=== PATIENT | female | born 1970 | race Hispanic/Latino ===

== ENCOUNTER 2022-05-23 01:01 | Day surgery (SDC) | payer OTHER, SELFPAY ==
[2022-05-07 15:04] VITALS: BMI 21.7
--- NOTE | 2022-05-22 14:25 | PM.HPGS ---
History of Present Illness History of Present Illness Consent: Risks, benefits, and alternatives have been discussed and questions answered. Patient agrees to proceed with procedure. Chief complaint: neoplasm screening Narrative: Jacquie Joseph is a 51 year old female Who was referred for colon cancer screening. Review of Systems Review of Systems: All systems reviewed & are unremarkable except as noted in HPI and below PMFSH Family History Family History Other Diabetes mellitus Social History Social History Smoking status: Never smoker Second hand tobacco smoke exposure: No Alcohol intake: never Substance use: never Substance use type: does not use Living arrangements: with family Spiritual care concerns: No Meds Home Medications and Allergies Home Medications Medication Instructions Recorded Confirmed Type ascorbic acid (vitamin C) 500 mg 500 mg PO DAILY 11/01/20 05/07/22 History capsule,extended release cholecalciferol (vitamin D3) 10 10 mcg PO DAILY 11/01/20 05/07/22 History mcg (400 unit) capsule omega-3 fatty acids 1,000 mg 1,000 mg PO DAILY 11/01/20 05/07/22 History capsule (Fish Oil Concentrate) naproxen 220 mg PO DAILY 05/07/22 05/07/22 History Allergies Allergy/AdvReac Type Severity Reaction Status Date / Time No Known Allergies Allergy Verified 05/23/22 09:16 Exam Resp: Auscultation: clear to auscultation bilaterally Cardio: Rate: regular rate Rhythm: regular rhythm GI: GI Palp: Yes Soft to palpation and No Tenderness to palpation present (GI) Assessment and Plan Assessment and plan (1) Colon cancer screening: Code(s): Z12.11 - Encounter for screening for malignant neoplasm of colon Status: Acute Assessment and Plan: Colonoscopy with possible biopsy or polypectomy or cautery or injection of substances.
[2022-05-23 09:22] VITALS: BP 127/54; PULSE 94; RESP 17; TEMP 36.5; O2SAT 100
[2022-05-23] MEDS: LACTATED RINGERS 1,000 ML 150 ML IV CONT (09:31)
--- NOTE | 2022-05-23 09:58 | P.PNAN_ITS ---
Anes - Initial Pre Proc Eval Procedure: Operation Date: 05/23/22 10:30 Proposed Procedures p Screening Colonoscopy - Kendrick Crystal MD Date/Time: 05/23/22 09:58 Surgeon: Kendrick Crystal MD Pre Op Diagnosis: neoplasm screening Patient Data Age: 51 Gender: F Height: 1.57 m Weight: 50.8 kg Last Vital Signs Temp 36.5 C 05/23/22 09:22 Pulse 94 05/23/22 09:22 Resp 17 05/23/22 09:22 BP 127/54 L 05/23/22 09:22 Pulse Ox 100 05/23/22 09:22 O2 Del Method Room Air 05/23/22 09:22 Allergies Allergy/AdvReac Type Severity Reaction Status Date / Time No Known Allergies Allergy Verified 05/23/22 09:16 Home Medications Medication Instructions Recorded Confirmed Type ascorbic acid (vitamin C) 500 mg 500 mg PO DAILY 11/01/20 05/07/22 History capsule,extended release cholecalciferol (vitamin D3) 10 10 mcg PO DAILY 11/01/20 05/07/22 History mcg (400 unit) capsule omega-3 fatty acids 1,000 mg 1,000 mg PO DAILY 11/01/20 05/07/22 History capsule (Fish Oil Concentrate) naproxen 220 mg PO DAILY 05/07/22 05/07/22 History Patient hx anesthesia problems: none Family hx anesthesia problems: none Results Review: All pre-operative results and documents have been reviewed as part of the pre- operative evaluation. PMFSH Family History Family History Other Diabetes mellitus Social History Social History Smoking status: Never smoker Second hand tobacco smoke exposure: No Alcohol intake: never Substance use: never Substance use type: does not use Living arrangements: with family Spiritual care concerns: No Anes - Eval Final PreProcedure Day of Procedure 05/23/22 09:58 Patient weight: normal Heart: regular rate and rhythm Lungs: clear to auscultation Airway: Mallampati scale class II Neurological: alert and oriented Last oral intake: >/= 8 hours ASA classification: I Emergent: no Anesthetic plan: proceed Anesthesia type and monitoring: general GIVS and standard monitoring Results Review: All pre-operative results and documents have been reviewed as part of the pre- operative evaluation. Informed Consent: The patient's anesthetic plan and its attendant risks and benefits were discussed with the patient/family/POA. Questions were solicited and answers provided to the satisfaction of the patient/family/POA.
[2022-05-23 10:39] VITALS: BP 109/62; PULSE 82; RESP 22; O2SAT 100
[2022-05-23 10:49] VITALS: BP 115/74; PULSE 73; RESP 16; O2SAT 100
[2022-05-23 10:59] VITALS: BP 112/73; PULSE 67; RESP 17; O2SAT 100
== END 2022-05-23 11:10 | disposition home or self-care (01) ==
PROVIDERS: PCP Internal Medicine; Visit Provider Internal Medicine Gastroenterology
PROC: 0DJD8ZZ Inspection of Lower Intestinal Tract, Via Natural or Artificial Opening Endoscopic (ICD-10-PCS; CPT 45378; principal; 2022-05-23 10:30)
DX: Z12.11 Encounter for screening for malignant neoplasm of colon (principal)
CPT/HCPCS: 45378; J2704; J7120

== ENCOUNTER 2025-02-10 08:43 | Outpatient (CLI) | payer OTHER, SELFPAY ==
--- OUTSIDE RECORDS SUMMARY | 2025-02-10 08:56 | XMS_ITS | Data Portability ---
Author Organization [facility], Main Office Address [address] [place] [address] Care Team Providers Care Stiff Neck Loader Name Role Phone LAUREN JUAN Primary Care Provider LAUREN JUAN Referring Provider [phone] Assessment Encounter Date Assessment Date Assessment LastModified by Organization Details LastModified Time 07/10/2023 07/10/2023 52-year-old patient presents today with left shoulder pain that started a few months ago. She denies any injury. She states she experiences pain with lifting overhead and reaching forward. She has not tried any treatments at this time. She is right-handed. Review of systems per patient questionnaire Imaging: X-rays reviewed show no acute bony abnormality, no fracture. Preserved joint space throughout. Physical exam: No tenderness to palpation around the shoulder. Range of motion 140/30/lower lumbar. She has 5/5 strength with rotator cuff testing. She did have soreness with resisted elevation. Negative Randy sign. Negative Neer, Lambert. Negative Speed, Yergason's. Neurovascular intact throughout. We will start with a course of physical therapy to help stretch and strengthen her shoulder. We recommend that she start taking anti-inflammator ies consistently over the next few weeks. We will see her back in 4-6 weeks after therapy to check her progress. She is in agreement with this plan. [email or web address] Not available 07/10/2023 10:49:52 Plan of Treatment Reminders Order Date Submit Date Provider Last Modified By Organization Details Last Modified Time Details Appointments None recorded. Lab vitamin D, 25-hydroxy , total, serum 2023 024 [facility], [address] [place], [address], 09:56:43 CMP, serum or plasma 2023 024 [facility], [address] [place], [address], 4 09:56:42 CBC w/ auto diff 2023 024 [email or web address] [facility], [address] [place], [address], 4 09:56:43 lipid panel, serum 2023 024 [email or web address] [facility], [address] [place], [address], 4 09:56:43 TSH, serum or plasma 2023 024 [email or web address] [facility], [address] [place], [address], 4 09:56:43 T4, free, serum 2023 024 [facility], [address] [place], [address], 4 09:56:43 vitamin D, 25-hydroxy , total, serum 2022 023 [email or web address] [facility], [address] [place], [address], 3 10:13:16 CMP, serum or plasma [id number] [place] [address], [address] [place], [address], 3 10:13:15 lipid panel, serum 2022 023 [email or web address] [facility], [address] [place], [address], 3 10:13:15 CBC w/ auto diff 2022 023 [email or web address] [facility], [address] [place], [address], 10:13:15 TSH, serum or plasma 2022 023 [id number] [facility], [address] [place], [address], 10:13:15 T4, free, serum 2022 023 [email or web address] [facility], [address] [place], [address], 10:13:15 Referral physical therapist referral - Please contact pt to schedule apt for L shoulder. Thanks 2022 023 [facility] [place], [address] [place], [address], 13:57:57 Procedures None recorded. Surgeries None recorded. Imaging None recorded. Medication Orders None recorded. Patient TargetsNo targets recorded. Patient Instructions Encounter Date Encounter Id Patient Instructions Last Modified By Organization Details Last Modified Time 03/27/2023 [id number] risk assessment* [email or web address] Not availabl e 03/27/2023 10:45:28 INFLUENZA VACCIN E Recommended today, but patient declined TD/TDAP Recommended today, patient declined Ordered P atient will get at local pharmacy/health department PNEUMONIA VACCINE Ordered Recommende d today, patient declined Patient will get at local pharmacy/health department Recomme nded at age 66 SHINGLES Ordered Recommende d today, patient declined Patient will get at local pharmacy/health department MAMMOGRAM: Last Mammogram _ No screening necessary patient is up to date DEXA SCAN No screening necessary patient is up to date CERVICAL SCREENING/PELVIC EXAMINATION Recommended today, but patient declined Ordered N o screening necessary patient is up to date COLORECTAL SCREENING: Last Colonoscopy No screening necessary patient is up to date DEPRESSION SCREENING Negative BMI Overweight Appropr iate NUTRITION Heart Healthy Diet PHYSICAL ACTIVITY Need more exercise/physical activity VISION Ordered Recommende d today Recommended today, but you have declined ALCOHOL USE No alcohol use TOBACCO USE non smoker LUNG CANCER SCREENING Non Smoker-not indicated SEXUALLY ACTIVE HEPATITIS C SCREENING Not indicated GLUCOSE SCREENING LIPID SCREENING [email or web address] Not available 03/27/2023 10:36:58 Wellness evaluation risk assessment stable. 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 Will check blood work consisting of CBC, CMP, thyroid, lipid and vitamin-D level. Continue on current Rx follow-up in one year. [email or web address] Not available 03/27/2023 10:45:09 04/14/2024 [id number] Wellness evaluation risk assessment stable. History of carcinoid of the appendix clinically stable. No interval complaints of any new problems. Will check blood work in the form of CBC, CMP, lipid, thyroid and vitamin-D level. Will continue on current Rx recheck back in one year. Next Appointment: 1 Year Approximate Date: 04/14/2025 Portions of the record may have been created with voice recognition software. Occasional wrong-word or [id number] substitutions may have occurred due to the inherent limitations of voice recognition software. Read the chart carefully and recognize, using context, where substitutions have occurred. [email or web address] Not available 04/14/2024 16:10:12 Reason for Referral Physical Therapist Referral for Pain of left shoulder joint L shoulder Please contact pt to schedule apt for L shoulder. Thanks Referring Physician: Ewa Montero, Orthopedic Surgery, Encounter Date: 07/10/2023 Results Created Date Observation Date Name Description Value Unit Range Abnormal Flag Note LastModifiedBy Organization Detail LastModifiedTime 04/08/20 21 04/08/2021 vitam in D3, 25-hy droxy , serum [id number] 47.0 NG/mL 30-100 Vitam in D Statu s: Defic ient: <20 ng/mL Insuf ficie nt: 20-29 ng/mL Suffi cient : 30-10 0 ng/mL Not Available [facility] (Lab) [address] [place], [address], 04/08/2021 20:53:48 04/08/20 21 04/08/2021 vitam in B12, serum vb12 539 pg/mL 239-93 1 Not Available [facility] (Lab) [address] [place], [address], 04/08/2021 20:24:46 04/08/20 21 04/08/2021 TSH, serum or plasm a thyroid-stim ulating hormone 0.793 uIU/m L 0.465- 4.680 Not Available [facility] (Lab) [address] [place], [address], 04/08/2021 20:13:55 04/08/20 21 04/08/2021 T4, free, serum free T4 1.32 NG/dL 0.78-2 .19 Not Available [facility] (Lab) [address] [place], [address], 04/08/2021 19:55:10 04/08/20 21 04/08/2021 lipid panel , serum cholesterol 185 mg/dL 140-19 9 [facility] OSMANY NSUS RECOM MENDA TION FOR CORINE STERO L: ADULT CHILD LOW RISK: <200 <170 BORDE RLINE : <200- 239 ----- HIGH RISK: >240 >200 Not Available [facility] (Lab) [address] [place], [address], 04/08/2021 19:53:27 04/08/2004/08/2021 lipid panel , serum triglyceride s 97 mg/dL 0-150 NIH OSMANY NSUS REPOR T RECOM MENDA TION FOR TRIGL YCERI FROYLAN: ADULT CHILD LOW RISK: <150 ----- BODER LINE: 150-1 99 ----- HIGH RISK: >200 ----- Not Available [facility] (Lab) [address] [place], [address], 04/08/2021 19:53:27 04/08/2004/08/2021 lipid panel , serum HDL cholesterol 53 mg/dL 40- Not Available [facility] (Lab) [address] [place], [address], 04/08/2021 19:53:27 04/08/20 21 04/08/2021 lipid panel , serum LDL cholesterol, calculated 113 mg/dL 0-130 NIH OSMANY NSUS REPOR T RECOM MENDA TIONS FOR LDL: ADULT CHILD LOW RISK <130 <110 (OPTI MAL LDL) <100 ----- BORDE RLINE : 130-1 59 ----- HIGH RISK: >160 >130 A TRIGL YCERI DE RESUL T >400 INVAL IDATE S THE CALCU LATIO N FOR LDL FRACT IONAT ION - THE LDL RESUL T WILL NOT BE REPOR DAVONTE. Not Available [facility] (Lab) [address] [place], [address], 04/08/2021 19:53:27 04/08/20 21 04/08/2021 CMP, serum or plasm a agap 11.4 mmol/ L 14-[address] [facility] (Lab) [address] [place], [address], 04/08/2021 19:53:22 04/08/20 21 04/08/2021 CMP, serum or plasm a sodium 139 mmol/ L 137-14 5 Not Available [facility] (Lab) [address] [place], [address], 04/08/2021 19:53:22 04/08/20 21 04/08/2021 CMP, serum or plasm a potassium 4.4 mmol/ L 3.5-5. 1 Not Available [facility] (Lab) [address] [place], [address], 04/08/2021 19:53:22 04/08/20 21 04/08/2021 CMP, serum or plasm a chloride 104 mmol/ L 98-107 Not Available [facility] (Lab) [address] [place], [address], 04/08/2021 19:53:22 04/08/20 21 04/08/2021 CMP, serum or plasm a carbon dioxide 28 mmol/ L 22-30 Not Available [facility] (Lab) [address] [place], [address], 04/08/2021 19:53:22 04/08/2004/08/2021 CMP, serum or plasm a glucose 78 mg/dL 70-99 Not Available [facility] (Lab) [address] [place], [address], 04/08/2021 19:53:22 04/08/20 21 04/08/2021 CMP, serum or plasm a BUN 14 mg/dL 8-19 Not Available [facility] (Lab) [address] [place], [address], 04/08/2021 19:53:22 04/08/20 21 04/08/2021 CMP, serum or plasm a creatinine 0.65 mg/dL 0.66-1 .25 low Not Available [facility] (Lab) [address] [place], [address], 04/08/2021 19:53:22 04/08/2004/08/2021 CMP, serum or plasm a GFR >60 Refer ence Range : [place] ge GFR Healt hy Adult : >60 mL/mi n/1.7 3 m2 Chron ic Kidne y Disea se: 15-60 mL/mi n/1.7 3 m2 Kidne y Failu re: <15/m L/min /1.73 m2 www.n iddk. nih.g ov MDRD study equat ion hasn' t been valid ated in child wanda <18 yrs of age, pregn ant women , the elder ly >85 yrs of age, or in some racia l or ethni c subgr oups, suc as Hispa nics. Outsi de the valid ated martin eters , estim ated GFR is less accur ate requi ring clini kate judgm ent on a case by case basis . Clini kate inter preta tion for other races and ages must be made by the clini todd . Futhe rmore , any of th e limit ation s with the use of serum creat inine relat ed to nutri alber l statu s o r medic ation usage hasn' t accou nted for the MDRD Study equat ion. For perso ns < 18 yrs of age, a pedia tric GFR calcu lator can be locat ed on the [facility] websi te: https ://michelle w.devendra radha.o rg/pr ofess ional s/kdo qi/gf r_cal culat or Not Available [facility] (Lab) [address] [place], [address], 04/08/2021 19:53:22 04/08/20 21 04/08/2021 CMP, serum or plasm a alkaline phosphatase 60 U/L 38-126 Not Available [facility] (Lab) [address] [place], [address], 04/08/2021 19:53:22 04/08/2004/08/2021 CMP, serum or plasm a alanine aminotransfe rase 30 U/L 0-35 Not Available [facility] (Lab) [address] [place], [address], 04/08/2021 19:53:22 04/08/2004/08/2021 CMP, serum or plasm a aspartate aminotransfe rase 35 U/L 15-37 Not Available [facility] (Lab) [address] [place], [address], 04/08/2021 19:53:22 04/08/20 21 04/08/2021 CMP, serum or plasm a bilirubin, total 0.50 mg/dL 0.20-1 .30 Not Available [facility] (Lab) [address] [place], [address], 04/08/2021 19:53:22 04/08/20 21 04/08/2021 CMP, serum or plasm a calcium 9.5 mg/dL 8.4-10 .2 Not Available [facility] (Lab) [address] [place], [address], 04/08/2021 19:53:22 04/08/2004/08/2021 CMP, serum or plasm a total protein 7.5 g/dL 6.3-8. 2 Not Available [facility] (Lab) [address] [place], [address], 04/08/2021 19:53:22 04/08/20 21 04/08/2021 CMP, serum or plasm a albumin 4.6 g/dL 3.4-5. 0 Not Available [facility] (Lab) [address] [place], [address], 04/08/2021 19:53:22 04/08/20 21 04/08/2021 CMP, serum or plasm a globulin 2.9 g/dL 2.6-4. 2 Not Available [facility] (Lab) [address] [place], [address], 04/08/2021 19:53:22 04/08/20 21 04/08/2021 CMP, serum or plasm a A/G ratio 1.6 ratio 1.0-2. 0 Not Available [facility] (Lab) [address] [place], [address], 04/08/2021 19:53:22 04/08/2004/08/2021 CBC w/ auto diff hematocrit 38.4 % 35.7-4 5.7 Not Available [facility] (Lab) [address] [place], [address], 04/08/2021 14:00:13 04/08/2004/08/2021 CBC w/ auto diff white blood cells 4.3 x10'3 /uL 4.2-10 .8 Not Available [facility] (Lab) [address] [place], [address], 04/08/2021 14:00:13 04/08/20 21 04/08/2021 CBC w/ auto diff red blood cells 4.20 x10'6 /uL 3.80-5 .20 Not Available [facility] (Lab) [address] [place], [address], 04/08/2021 14:00:13 04/08/20 21 04/08/2021 CBC w/ auto diff hemoglobin 12.6 g/dL 12.0-[address] [facility] (Lab) [address] [place], [address], 04/08/2021 14:00:13 04/08/2004/08/2021 CBC w/ auto diff mean red cell volume 91.4 fL 82.0-9 9.0 Not Available [facility] (Lab) [address] [place], [address], 04/08/2021 14:00:13 04/08/2004/08/2021 CBC w/ auto diff mean red cell hemoglobin 30.0 pg 27.0-3 3.0 Not Available [facility] (Lab) [address] [place], [address], 04/08/2021 14:00:13 04/08/2004/08/2021 CBC w/ auto diff mean platelet volume 10.3 fL 9.0-12 .4 Not Available [facility] (Lab) [address] [place], [address], 04/08/2021 14:00:13 04/08/2004/08/2021 CBC w/ auto diff mean RBC HGB concentratio n 32.8 g/dL 31.0-3 6.0 Not Available [facility] (Lab) [address] [place], [address], 04/08/2021 14:00:13 04/08/20 21 04/08/2021 CBC w/ auto diff red cell distribution width 13.4 % 11.8-[address] [facility] (Lab) [address] [place], [address], 04/08/2021 14:00:13 04/08/2004/08/2021 CBC w/ auto diff platelets 256 x10'3 /uL 150-40 0 Not Available [facility] (Lab) [address] [place], [address], 04/08/2021 14:00:13 04/08/2004/08/2021 CBC w/ auto diff neutrophils 63.0 % 39.0-7 2.0 Not Available [facility] (Lab) [address] [place], [address], 04/08/2021 14:00:13 04/08/2004/08/2021 CBC w/ auto diff lymphocytes 26.5 % 16.0-[address] [facility] (Lab) [address] [place], [address], 04/08/2021 14:00:13 04/08/2004/08/2021 CBC w/ auto diff monocytes 6.3 % 5.0-12 .0 Not Available [facility] (Lab) [address] [place], [address], 04/08/2021 14:00:13 04/08/2004/08/2021 CBC w/ auto diff eosinophils 3.3 % 1.0-7. 0 Not Available [facility] (Lab) [address] [place], [address], 04/08/2021 14:00:13 04/08/2004/08/2021 CBC w/ auto diff basophils 0.7 % 0.0-2. 0 Not Available [facility] (Lab) [address] [place], [address], 04/08/2021 14:00:13 04/08/2004/08/2021 CBC w/ auto diff immature granulocytes 0.2 % 0.00-[address] [facility] (Lab) [address] [place], [address], 04/08/2021 14:00:13 04/08/20 21 04/08/2021 CBC w/ auto diff neutrophils, absolute count 2.71 x10'3 /uL 1.5-8. [address] [facility] (Lab) [address] [place], [address], 04/08/2021 14:00:13 04/08/2004/08/2021 CBC w/ auto diff lymphocytes, absolute count 1.14 x10'3 /uL 1.07-3 .43 Not Available [facility] (Lab) [address] [place], [address], 04/08/2021 14:00:13 04/08/2004/08/2021 CBC w/ auto diff monocytes, absolute count 0.27 x10'3 /uL 0.29-0 [address] [facility] (Lab) [address] [place], [address], 04/08/2021 14:00:13 04/08/2004/08/2021 CBC w/ auto diff eosinophils, absolute count 0.14 x10'3 /uL 0.02-[address] [facility] (Lab) [address] [place], [address], 04/08/2021 14:00:13 04/08/2004/08/2021 CBC w/ auto diff basophils, absolute count 0.03 x10'3 /uL 0.01-0 .08 Not Available [facility] (Lab) [address] [place], [address], 04/08/2021 14:00:13 04/08/2004/08/2021 CBC w/ auto diff immature granulocytes ,absolute 0.01 x10'3 /uL 0.00-0 .05 Not Available [facility] (Lab) [address] [place], [address], 04/08/2021 14:00:13 04/08/20 21 04/08/2021 CBC w/ auto diff nucleated red blood cells 0.0 % -0 Not Available [facility] (Lab) [address] [place], [address], 04/08/2021 14:00:13 04/08/20 21 04/08/2021 CBC w/ auto diff NRBC# 0.00 x10'3 /uL Not Available [facility] (Lab) [address] [place], [address], 04/08/2021 14:00:13 04/28/20 22 04/28/2022 CBC/C OMPLE TE BLD COUNT W/DIF F mean red cell volume 92.5 fL 82.0-9 9.0 Not Available [facility] (Lab) [address] [place], [address], 04/28/2022 13:02:35 04/28/20 22 04/28/2022 CBC/C OMPLE TE BLD COUNT W/DIF F white blood cells 4.8 x10'3 /uL 4.2-10 .8 Not Available [facility] (Lab) [address] [place], [address], 04/28/2022 13:02:35 04/28/20 22 04/28/2022 CBC/C OMPLE TE BLD COUNT W/DIF F red blood cells 4.27 x10'6 /uL 3.80-5 .20 Not Available [facility] (Lab) [address] [place], [address], 04/28/2022 13:02:35 04/28/20 22 04/28/2022 CBC/C OMPLE TE BLD COUNT W/DIF F hemoglobin 12.9 g/dL 12.0-1 5.6 Not Available [facility] (Lab) [address] [place], [address], 04/28/2022 13:02:35 04/28/20 22 04/28/2022 CBC/C OMPLE TE BLD COUNT W/DIF F hematocrit 39.5 % 35.7-4 5.7 Not Available [facility] (Lab) [address] [place], [address], 04/28/2022 13:02:35 04/28/20 22 04/28/2022 CBC/C OMPLE TE BLD COUNT W/DIF F mean red cell hemoglobin 30.2 pg 27.0-3 3.0 Not Available [facility] (Lab) [address] [place], [address], 04/28/2022 13:02:35 04/28/20 22 04/28/2022 CBC/C OMPLE TE BLD COUNT W/DIF F mean RBC HGB concentratio n 32.7 g/dL 31.0-3 6.0 Not Available [facility] (Lab) [address] [place], [address], 04/28/2022 13:02:35 04/28/20 22 04/28/2022 CBC/C OMPLE TE BLD COUNT W/DIF F red cell distribution width 13.2 % 11.8-1 5.5 Not Available [facility] (Lab) [address] [place], [address], 04/28/2022 13:02:35 04/28/20 22 04/28/2022 CBC/C OMPLE TE BLD COUNT W/DIF F platelets 270 x10'3 /uL 150-40 0 Not Available [facility] (Lab) [address] [place], [address], 04/28/2022 13:02:35 04/28/20 22 04/28/2022 CBC/C OMPLE TE BLD COUNT W/DIF F mean platelet volume 10.6 fL 9.0-[address] [facility] (Lab) [address] [place], [address], 04/28/2022 13:02:35 04/28/20 22 04/28/2022 CBC/C OMPLE TE BLD COUNT W/DIF F neutrophils 58.0 % 39.0-[address] [facility] (Lab) [address] [place], [address], 04/28/2022 13:02:35 04/28/20 22 04/28/2022 CBC/C OMPLE TE BLD COUNT W/DIF F lymphocytes 30.5 % 16.0-4 7.0 Not Available [facility] (Lab) [address] [place], [address], 04/28/2022 13:02:35 04/28/20 22 04/28/2022 CBC/C OMPLE TE BLD COUNT W/DIF F monocytes 6.4 % 5.0-[address] [facility] (Lab) [address] [place], [address], 04/28/2022 13:02:35 04/28/20 22 04/28/2022 CBC/C OMPLE TE BLD COUNT W/DIF F eosinophils 4.1 % 1.0-7. [address] [facility] (Lab) [address] [place], [address], 04/28/2022 13:02:35 04/28/20 22 04/28/2022 CBC/C OMPLE TE BLD COUNT W/DIF F basophils 0.8 % 0.0-2. 0 Not Available [facility] (Lab) [address] [place], [address], 04/28/2022 13:02:35 04/28/20 22 04/28/2022 CBC/C OMPLE TE BLD COUNT W/DIF F immature granulocytes 0.2 % 0.00-0 .50 Not Available [facility] (Lab) [address] [place], [address], 04/28/2022 13:02:35 04/28/20 22 04/28/2022 CBC/C OMPLE TE BLD COUNT W/DIF F neutrophils, absolute count 2.79 x10'3 /uL 1.5-8. 0 Not Available [facility] (Lab) [address] [place], [address], 04/28/2022 13:02:35 04/28/20 22 04/28/2022 CBC/C OMPLE TE BLD COUNT W/DIF F lymphocytes, absolute count 1.47 x10'3 /uL 1.07-3 .43 Not Available [facility] (Lab) [address] [place], [address], 04/28/2022 13:02:35 04/28/20 22 04/28/2022 CBC/C OMPLE TE BLD COUNT W/DIF F monocytes, absolute count 0.31 x10'3 /uL 0.29-0 .99 Not Available [facility] (Lab) [address] [place], [address], 04/28/2022 13:02:35 04/28/20 22 04/28/2022 CBC/C OMPLE TE BLD COUNT W/DIF F eosinophils, absolute count 0.20 x10'3 /uL 0.02-0 .53 Not Available [facility] (Lab) [address] [place], [address], 04/28/2022 13:02:35 04/28/20 22 04/28/2022 CBC/C OMPLE TE BLD COUNT W/DIF F basophils, absolute count 0.04 x10'3 /uL 0.01-0 .08 Not Available [facility] (Lab) [address] [place], [address], 04/28/2022 13:02:35 04/28/20 22 04/28/2022 CBC/C OMPLE TE BLD COUNT W/DIF F immature granulocytes ,absolute 0.01 x10'3 /uL 0.00-0 .05 Not Available [facility] (Lab) [address] [place], [address], 04/28/2022 13:02:35 04/28/20 22 04/28/2022 CBC/C OMPLE TE BLD COUNT W/DIF F nucleated red blood cells 0.0 % -0 Not Available [facility] (Lab) [address] [place], [address], 04/28/2022 13:02:35 04/28/20 22 04/28/2022 CBC/C OMPLE TE BLD COUNT W/DIF F NRBC# 0.00 x10'3 /uL Not Available [facility] (Lab) [address] [place], [address], 04/28/2022 13:02:35 04/28/20 22 04/28/2022 TSH thyroid-stim ulating hormone 1.350 uIU/m L 0.465- 4.680 Not Available [facility] (Lab) [address] [place], [address], 04/28/2022 15:07:40 04/28/20 22 04/28/2022 T4 FREE free T4 1.40 NG/dL 0.78-2 .19 Not Available [facility] (Lab) [address] [place], [address], 04/28/2022 14:52:58 04/28/20 22 04/28/2022 LIPID PANEL cholesterol 201 mg/dL 140-19 9 high NIH OSMANY NSUS RECOM MENDA TION FOR CORINE STERO L: ADULT CHILD LOW RISK: <200 <170 BORDE RLINE : <200- 239 ----- HIGH RISK: >240 >200 Not Available [facility] (Lab) [address] [place], [address], 04/28/2022 14:31:43 04/28/20 22 04/28/2022 LIPID PANEL triglyceride s 102 mg/dL 0-150 NIH OSMANY NSUS REPOR T RECOM MENDA TION FOR TRIGL YCERI FROYLAN: ADULT CHILD LOW RISK: <150 ----- BODER LINE: 150-1 99 ----- HIGH RISK: >200 ----- Not Available [facility] (Lab) [address] [place], [address], 04/28/2022 14:31:43 04/28/20 22 04/28/2022 LIPID PANEL HDL cholesterol 52 mg/dL 40- Not Available [facility] (Lab) [address] [place], [address], 04/28/2022 14:31:43 04/28/20 22 04/28/2022 LIPID PANEL LDL cholesterol, calculated 129 mg/dL 0-130 NIH OSMANY NSUS REPOR T RECOM MENDA TIONS FOR LDL: ADULT CHILD LOW RISK <130 <110 (OPTI MAL LDL) <100 ----- BORDE RLINE : 130-1 59 ----- HIGH RISK: >160 >130 A TRIGL YCERI DE RESUL T >400 INVAL IDATE S THE CALCU LATIO N FOR LDL FRACT IONAT ION - THE LDL RESUL T WILL NOT BE REPOR DAVONTE. Not Available [facility] (Lab) [address] [place], [address], 04/28/2022 14:31:43 04/28/20 22 04/28/2022 COMPR EHENS BRIANDA METAB OLIC PANEL anion gap 9.5 mmol/ L 14- low Not Available [facility] (Lab) [address] [place], [address], 04/28/2022 14:31:40 04/28/20 22 04/28/2022 COMPR EHENS BRIANDA METAB OLIC PANEL sodium 139 mmol/ L 137-[address] [facility] (Lab) [address] [place], [address], 04/28/2022 14:31:40 04/28/20 22 04/28/2022 COMPR EHENS BRIANDA METAB OLIC PANEL potassium 4.5 mmol/ L 3.5-5. [address] [facility] (Lab) [address] [place], [address], 04/28/2022 14:31:40 04/28/20 22 04/28/2022 COMPR EHENS BRIANDA METAB OLIC PANEL chloride 105 mmol/ L 98-107 Not Available [facility] (Lab) [address] [place], [address], 04/28/2022 14:31:40 04/28/20 22 04/28/2022 COMPR EHENS BRIANDA METAB OLIC PANEL carbon dioxide 29 mmol/ L 22-[address] [facility] (Lab) [address] [place], [address], 04/28/2022 14:31:40 04/28/20 22 04/28/2022 COMPR EHENS BRIANDA METAB OLIC PANEL glucose 89 mg/dL 70-99 Not Available [facility] (Lab) [address] [place], [address], 04/28/2022 14:31:40 04/28/20 22 04/28/2022 COMPR EHENS BRIANDA METAB OLIC PANEL BUN 21 mg/dL 8-19 high Not Available [facility] (Lab) [address] [place], [address], 04/28/2022 14:31:40 04/28/20 22 04/28/2022 COMPR EHENS BRIANDA METAB OLIC PANEL creatinine 0.71 mg/dL 0.66-1 .25 Not Available [facility] (Lab) [address] [place], [address], 04/28/2022 14:31:40 04/28/20 22 04/28/2022 COMPR EHENS BRIANDA METAB OLIC PANEL GFR >60 Refer ence Range : [place] [facility] GFR Healt hy Adult : >60 mL/mi n/1.7 3 m2 Chron ic Kidne y Disea se: 15-60 mL/mi n/1.7 3 m2 Kidne y Failu re: <15/m L/min /1.73 m2 [email or web address] The MDRD study equat ion has not been valid ated in child wanda <18 years of age; pregn ant women ; the elder ly >85 years of age; or in some racia l or ethni c subgr oups, such as Hispa nics. Outsi de the valid ated martin eters , estim ated GFR is less accur ate, requi ring clini kate judgm ent on a case- by-ca se basis . Clini kate inter preta tion for other races and ages must be made by the clini todd. The MDRD study equat ion has not been valid ated for the evalu ation of serum creat inine relat ed to nutri alber l statu s or medic ation usage . For perso ns <18 years of age, a pedia tric GFR calcu lator is avail able on the [facility] websi te: [email or web address] :[email or web address] irma/pr ofess ional s/kdo qi/gf r_cal culat or Not Available [facility] (Lab) [address] [place], [address], 04/28/2022 14:31:40 04/28/20 22 04/28/2022 COMPR EHENS BRIANDA METAB OLIC PANEL alkaline phosphatase 67 U/L 38-126 Not Available [facility] (Lab) [address] [place], [address], 04/28/2022 14:31:40 04/28/20 22 04/28/2022 COMPR EHENS BRIANDA METAB OLIC PANEL alanine aminotransfe rase 22 U/L 0-35 Not Available [facility] (Lab) [address] [facility] [place], [address], 04/28/2022 14:31:40 04/28/20 22 04/28/2022 COMPR EHENS BRIANDA METAB OLIC PANEL aspartate aminotransfe rase 29 U/L 15-37 Not Available [facility] (Lab) [address] [place], [address], 04/28/2022 14:31:40 04/28/20 22 04/28/2022 COMPR EHENS BRIANDA METAB OLIC PANEL bilirubin, total 0.30 mg/dL 0.20-1 .30 Not Available [facility] (Lab) [address] [place], [address], 04/28/2022 14:31:40 04/28/20 22 04/28/2022 COMPR EHENS BRIANDA METAB OLIC PANEL calcium 9.3 mg/dL 8.4-10 .2 Not Available [facility] (Lab) [address] [place], [address], 04/28/2022 14:31:40 04/28/20 22 04/28/2022 COMPR EHENS BRIANDA METAB OLIC PANEL total protein 7.4 g/dL 6.3-8. 2 Not Available [facility] (Lab) [address] [place], [address], 04/28/2022 14:31:40 04/28/20 22 04/28/2022 COMPR EHENS BRIANDA METAB OLIC PANEL albumin 4.3 g/dL 3.4-5. 0 Not Available [facility] (Lab) [address] [place], [address], 04/28/2022 14:31:40 04/28/20 22 04/28/2022 COMPR EHENS BRIANDA METAB OLIC PANEL globulin 3.1 g/dL 2.6-4. 2 Not Available [facility] (Lab) [address] [place], [address], 04/28/2022 14:31:40 04/28/20 22 04/28/2022 COMPR EHENS BRIANDA METAB OLIC PANEL A/G ratio 1.4 ratio 1.0-2. 0 Not Available [facility] (Lab) [address] [place], [address], 04/28/2022 14:31:40 05/22/20 23 05/22/2023 CBC/C OMPLE TE BLD COUNT W/DIF F white blood cells 5.8 x10'3 /uL 4.2-10 .8 Not Available [facility] (Lab) [address] [place], [address], 05/22/2023 12:45:41 05/22/20 23 05/22/2023 CBC/C OMPLE TE BLD COUNT W/DIF F red blood cells 4.34 x10'6 /uL 3.80-5 .20 Not Available [facility] (Lab) [address] [place], [address], 05/22/2023 12:45:41 05/22/20 23 05/22/2023 CBC/C OMPLE TE BLD COUNT W/DIF F hemoglobin 13.3 g/dL 12.0-1 5.6 Not Available [facility] (Lab) [address] [place], [address], 05/22/2023 12:45:41 05/22/20 23 05/22/2023 CBC/C OMPLE TE BLD COUNT W/DIF F hematocrit 39.6 % 35.7-4 5.7 Not Available [facility] (Lab) [address] [place], [address], 05/22/2023 12:45:41 05/22/20 23 05/22/2023 CBC/C OMPLE TE BLD COUNT W/DIF F mean red cell volume 91.2 fL 82.0-9 9.0 Not Available [facility] (Lab) [address] [place], [address], 05/22/2023 12:45:41 05/22/20 23 05/22/2023 CBC/C OMPLE TE BLD COUNT W/DIF F mean red cell hemoglobin 30.6 pg 27.0-3 3.0 Not Available [facility] (Lab) [address] [place], [address], 05/22/2023 12:45:41 05/22/20 23 05/22/2023 CBC/C OMPLE TE BLD COUNT W/DIF F mean RBC HGB concentratio n 33.6 g/dL 31.0-3 6.0 Not Available [facility] (Lab) [address] [place], [address], 05/22/2023 12:45:41 05/22/20 23 05/22/2023 CBC/C OMPLE TE BLD COUNT W/DIF F red cell distribution width 12.6 % 11.8-1 5.5 Not Available [facility] (Lab) [address] [place], [address], 05/22/2023 12:45:41 05/22/20 23 05/22/2023 CBC/C OMPLE TE BLD COUNT W/DIF F platelets 271 x10'3 /uL 150-40 0 Not Available [facility] (Lab) [address] [place], [address], 05/22/2023 12:45:41 05/22/20 23 05/22/2023 CBC/C OMPLE TE BLD COUNT W/DIF F mean platelet volume 10.2 fL 9.0-12 .4 Not Available [facility] (Lab) [address] [place], [address], 05/22/2023 12:45:41 05/22/20 23 05/22/2023 CBC/C OMPLE TE BLD COUNT W/DIF F neutrophils 60.7 % 39.0-7 2.0 Not Available [facility] (Lab) [address] [place], [address], 05/22/2023 12:45:41 05/22/20 23 05/22/2023 CBC/C OMPLE TE BLD COUNT W/DIF F lymphocytes 29.5 % 16.0-4 7.0 Not Available [facility] (Lab) [address] [place], [address], 05/22/2023 12:45:41 05/22/20 23 05/22/2023 CBC/C OMPLE TE BLD COUNT W/DIF F monocytes 5.3 % 5.0-12 .0 Not Available [facility] (Lab) [address] [place], [address], 05/22/2023 12:45:41 05/22/20 23 05/22/2023 CBC/C OMPLE TE BLD COUNT W/DIF F eosinophils 3.6 % 1.0-7. 0 Not Available [facility] (Lab) [address] [place], [address], 05/22/2023 12:45:41 05/22/20 23 05/22/2023 CBC/C OMPLE TE BLD COUNT W/DIF F basophils 0.7 % 0.0-2. 0 Not Available [facility] (Lab) [address] [place], [address], 05/22/2023 12:45:41 05/22/20 23 05/22/2023 CBC/C OMPLE TE BLD COUNT W/DIF F immature granulocytes 0.2 % 0.00-0 .50 Not Available [facility] (Lab) [address] [place], [address], 05/22/2023 12:45:41 05/22/20 23 05/22/2023 CBC/C OMPLE TE BLD COUNT W/DIF F neutrophils, absolute count 3.55 x10'3 /uL 1.5-8. 0 Not Available [facility] (Lab) [address] [place], [address], 05/22/2023 12:45:41 05/22/20 23 05/22/2023 CBC/C OMPLE TE BLD COUNT W/DIF F lymphocytes, absolute count 1.72 x10'3 /uL 1.07-3 .43 Not Available [facility] (Lab) [address] [place], [address], 05/22/2023 12:45:41 05/22/20 23 05/22/2023 CBC/C OMPLE TE BLD COUNT W/DIF F monocytes, absolute count 0.31 x10'3 /uL 0.29-0 .99 Not Available [facility] (Lab) [address] [place], [address], 05/22/2023 12:45:41 05/22/20 23 05/22/2023 CBC/C OMPLE TE BLD COUNT W/DIF F eosinophils, absolute count 0.21 x10'3 /uL 0.02-0 .53 Not Available [facility] (Lab) [address] [place], [address], 05/22/2023 12:45:41 05/22/20 23 05/22/2023 CBC/C OMPLE TE BLD COUNT W/DIF F basophils, absolute count 0.04 x10'3 /uL 0.01-0 .08 Not Available [facility] (Lab) [address] [place], [address], 05/22/2023 12:45:41 05/22/20 23 05/22/2023 CBC/C OMPLE TE BLD COUNT W/DIF F immature granulocytes ,absolute 0.01 x10'3 /uL 0.00-0 .05 Not Available [facility] (Lab) [address] [place], [address], 05/22/2023 12:45:41 05/22/20 23 05/22/2023 CBC/C OMPLE TE BLD COUNT W/DIF F nucleated red blood cells 0.0 % -0 Not Available [facility] (Lab) [address] [place], [address], 05/22/2023 12:45:41 05/22/20 23 05/22/2023 CBC/C OMPLE TE BLD COUNT W/DIF F NRBC# 0.00 x10'3 /uL Not Available [facility] (Lab) [address] [place], [address], 05/22/2023 12:45:41 05/22/20 23 05/22/2023 COMPR EHENS BRIANDA METAB OLIC PANEL sodium 141 mmol/ L 137-14 5 Not Available [facility] (Lab) [address] [place], [address], 05/22/2023 13:03:42 05/22/20 23 05/22/2023 COMPR EHENS BRIANDA METAB OLIC PANEL potassium 4.5 mmol/ L 3.5-5. 1 Not Available [facility] (Lab) [address] [place], [address], 05/22/2023 13:03:42 05/22/20 23 05/22/2023 COMPR EHENS BRIANDA METAB OLIC PANEL chloride 104 mmol/ L 98-107 Not Available [facility] (Lab) [address] [place], [address], 05/22/2023 13:03:42 05/22/20 23 05/22/2023 COMPR EHENS BRIANDA METAB OLIC PANEL carbon dioxide 29 mmol/ L 22-30 Not Available [facility] (Lab) [address] [place], [address], 05/22/2023 13:03:42 05/22/20 23 05/22/2023 COMPR EHENS BRIANDA METAB OLIC PANEL anion gap 12.5 mmol/ L 14-22 low Not Available [facility] (Lab) [address] [place], [address], 05/22/2023 13:03:42 05/22/20 23 05/22/2023 COMPR EHENS BRIANDA METAB OLIC PANEL glucose 89 mg/dL 70-99 Not Available [facility] (Lab) [address] [place], [address], 05/22/2023 13:03:42 05/22/20 23 05/22/2023 COMPR EHENS BRIANDA METAB OLIC PANEL BUN 16 mg/dL 8-19 Not Available [facility] (Lab) [address] [place], [address], 05/22/2023 13:03:42 05/22/20 23 05/22/2023 COMPR EHENS BRIANDA METAB OLIC PANEL creatinine 0.68 mg/dL 0.66-1 .25 Not Available [facility] (Lab) [address] [place], [address], 05/22/2023 13:03:42 05/22/20 23 05/22/2023 COMPR EHENS BRIANDA METAB OLIC PANEL GFR >60 Refer ence Range : [place] ge GFR Healt hy Adult : >60 mL/mi n/1.7 3 m2 Chron ic Kidne y Disea se: 15-60 mL/mi n/1.7 3 m2 Kidne y Failu re: <15/m L/min /1.73 m2 www.n iddk. nih.g ov The MDRD study equat ion has not been valid ated in child wanda <18 years of age; pregn ant women ; the elder ly >85 years of age; or in some racia l or ethni c subgr oups, such as Hispa nics. Outsi de the valid ated martin eters , estim ated GFR is less accur ate, requi ring clini kate judgm ent on a case- by-ca se basis . Clini kate inter preta tion for other races and ages must be made by the clini todd. The MDRD study equat ion has not been valid ated for the evalu ation of serum creat inine relat ed to nutri alber l statu s or medic ation usage . For perso ns <18 years of age, a pedia tric GFR calcu latshana is avail able on the [facility] websi te: [email or web address] :[email or web address] rg/pr ofess ional s/kdo qi/gf r_cal culat or Not Available [facility] (Lab) [address] [place], [address], 05/22/2023 13:03:42 05/22/20 23 05/22/2023 COMPR EHENS BRIANDA METAB OLIC PANEL alkaline phosphatase 59 U/L 38-126 Not Available [facility] (Lab) [address] [place], [address], 05/22/2023 13:03:42 05/22/20 23 05/22/2023 COMPR EHENS BRIANDA METAB OLIC PANEL alanine aminotransfe rase 21 U/L 0-35 Not Available [facility] (Lab) [address] [place], [address], 05/22/2023 13:03:42 05/22/20 23 05/22/2023 COMPR EHENS BRIANDA METAB OLIC PANEL aspartate aminotransfe rase 27 U/L 15-37 Not Available [facility] (Lab) [address] [place], [address], 05/22/2023 13:03:42 05/22/20 23 05/22/2023 COMPR EHENS BRIANDA METAB OLIC PANEL bilirubin, total 0.40 mg/dL 0.20-1 .30 Not Available [facility] (Lab) [address] [place], [address], 05/22/2023 13:03:42 05/22/20 23 05/22/2023 COMPR EHENS BRIANDA METAB OLIC PANEL calcium 9.5 mg/dL 8.4-10 .2 Not Available [facility] (Lab) [address] [place], [address], 05/22/2023 13:03:42 05/22/20 23 05/22/2023 COMPR EHENS BRIANDA METAB OLIC PANEL total protein 7.5 g/dL 6.3-8. 2 Not Available [facility] (Lab) [address] [place], [address], 05/22/2023 13:03:42 05/22/20 23 05/22/2023 COMPR EHENS BRIANDA METAB OLIC PANEL albumin 4.4 g/dL 3.4-5. 0 Not Available [facility] (Lab) [address] [place], [address], 05/22/2023 13:03:42 05/22/20 23 05/22/2023 COMPR EHENS BRIANDA METAB OLIC PANEL globulin 3.1 g/dL 2.6-4. 2 Not Available [facility] (Lab) [address] [place], [address], 05/22/2023 13:03:42 05/22/20 23 05/22/2023 COMPR EHENS BRIANDA METAB OLIC PANEL A/G ratio 1.4 ratio 1.0-2. 0 Not Available [facility] (Lab) [address] [place], [address], 05/22/2023 13:03:42 05/22/20 23 05/22/2023 LIPID PANEL cholesterol 199 mg/dL 140-19 9 NIH OSMANY NSUS RECOM MENDA TION FOR CORINE STERO L: ADULT CHILD LOW RISK: <200 <170 BORDE RLINE : <200- 239 ----- HIGH RISK: >240 >200 Not Available [facility] (Lab) [address] [place], [address], 05/22/2023 13:03:47 05/22/20 23 05/22/2023 LIPID PANEL triglyceride s 180 mg/dL 0-150 high NIH OSMANY NSUS REPOR T RECOM MENDA TION FOR TRIGL YCERI FROYLAN: ADULT CHILD LOW RISK: <150 ----- BODER LINE: 150-1 99 ----- HIGH RISK: >200 ----- Not Available [facility] (Lab) [address] [place], [address], 05/22/2023 13:03:47 05/22/20 23 05/22/2023 LIPID PANEL HDL cholesterol 49 mg/dL 40- Not Available [facility] (Lab) [address] [place], [address], 05/22/2023 13:03:47 05/22/20 23 05/22/2023 LIPID PANEL LDL cholesterol, calculated 114 mg/dL 0-130 NIH OSMANY NSUS REPOR T RECOM MENDA TIONS FOR LDL: ADULT CHILD LOW RISK <130 <110 (OPTI MAL LDL) <100 ----- AJNUMDE RLINE : 130-1 59 ----- HIGH RISK: >160 >130 A TRIGL YCERI DE RESUL T >400 INVAL IDATE S THE CALCU LATIO N FOR LDL FRACT IONAT ION - THE LDL RESUL T WILL NOT BE REPOR DAVONTE. Not Available [facility] (Lab) [address] [place], [address], 05/22/2023 13:03:47 05/22/20 23 05/22/2023 VITAM IN D 25-HY DROXY [id number] 62.4 NG/mL 30-100 Vitam in D Statu s: Defic ient: <20 ng/mL Insuf ficie nt: 20-29 ng/mL Suffi cient : 30-10 0 ng/mL Not Available [facility] (Lab) [address] [place], [address], 05/22/2023 13:20:38 05/22/20 23 05/22/2023 T4 FREE free T4 1.31 NG/dL 0.78-2 .19 Not Available [facility] (Lab) [address] [place], [address], 05/22/2023 13:23:19 05/22/20 23 05/22/2023 TSH thyroid-stim ulating hormone 1.410 uIU/m L 0.465- 4.680 Not Available [facility] (Lab) [address] [place], [address], 05/22/2023 13:31:40 06/03/20 24 06/03/2024 CBC/C OMPLE TE BLD COUNT W/DIF F white blood cells 5.4 x10'3 /uL 4.2-10 .8 Not Available [facility] (Lab) [address] [place], [address], 06/03/2024 13:00:27 06/03/20 24 06/03/2024 CBC/C OMPLE TE BLD COUNT W/DIF F red blood cells 4.63 x10'6 /uL 3.80-[address] [facility] (Lab) [address] [place], [address], 06/03/2024 13:00:27 06/03/20 24 06/03/2024 CBC/C OMPLE TE BLD COUNT W/DIF F hemoglobin 13.9 g/dL 12.0-1 5.6 Not Available [facility] (Lab) [address] [place], [address], 06/03/2024 13:00:27 06/03/20 24 06/03/2024 CBC/C OMPLE TE BLD COUNT W/DIF F hematocrit 42.4 % 35.7-4 5.7 Not Available [facility] (Lab) [address] [place], [address], 06/03/2024 13:00:27 06/03/20 24 06/03/2024 CBC/C OMPLE TE BLD COUNT W/DIF F mean red cell volume 91.6 fL 82.0-9 9.0 Not Available [facility] (Lab) [address] [place], [address], 06/03/2024 13:00:27 06/03/20 24 06/03/2024 CBC/C OMPLE TE BLD COUNT W/DIF F mean red cell hemoglobin 30.0 pg 27.0-3 3.0 Not Available [facility] (Lab) [address] [place], [address], 06/03/2024 13:00:27 06/03/20 24 06/03/2024 CBC/C OMPLE TE BLD COUNT W/DIF F mean RBC HGB concentratio n 32.8 g/dL 31.0-3 6.0 Not Available [facility] (Lab) [address] [place], [address], 06/03/2024 13:00:27 06/03/20 24 06/03/2024 CBC/C OMPLE TE BLD COUNT W/DIF F red cell distribution width 13.2 % 11.8-1 5.5 Not Available [facility] (Lab) [address] [place], [address], 06/03/2024 13:00:27 06/03/20 24 06/03/2024 CBC/C OMPLE TE BLD COUNT W/DIF F platelets 296 x10'3 /uL 150-40 0 Not Available [facility] (Lab) [address] [place], [address], 06/03/2024 13:00:27 06/03/20 24 06/03/2024 CBC/C OMPLE TE BLD COUNT W/DIF F mean platelet volume 10.4 fL 9.0-12 .4 Not Available [facility] (Lab) [address] [place], [address], 06/03/2024 13:00:27 06/03/20 24 06/03/2024 CBC/C OMPLE TE BLD COUNT W/DIF F neutrophils 58.4 % 39.0-7 2.0 Not Available [facility] (Lab) [address] [place], [address], 06/03/2024 13:00:27 06/03/20 24 06/03/2024 CBC/C OMPLE TE BLD COUNT W/DIF F lymphocytes 30.5 % 16.0-4 7.0 Not Available [facility] (Lab) [address] [place], [address], 06/03/2024 13:00:27 06/03/20 24 06/03/2024 CBC/C OMPLE TE BLD COUNT W/DIF F monocytes 6.0 % 5.0-12 .0 Not Available [facility] (Lab) [address] [place], [address], 06/03/2024 13:00:27 06/03/20 24 06/03/2024 CBC/C OMPLE TE BLD COUNT W/DIF F eosinophils 3.6 % 1.0-7. 0 Not Available [facility] (Lab) [address] [place], [address], 06/03/2024 13:00:27 06/03/20 24 06/03/2024 CBC/C OMPLE TE BLD COUNT W/DIF F basophils 1.1 % 0.0-2. 0 Not Available [facility] (Lab) [address] [place], [address], 06/03/2024 13:00:27 06/03/20 24 06/03/2024 CBC/C OMPLE TE BLD COUNT W/DIF F immature granulocytes 0.4 % 0.00-0 .50 Not Available [facility] (Lab) [address] [place], [address], 06/03/2024 13:00:27 06/03/20 24 06/03/2024 CBC/C OMPLE TE BLD COUNT W/DIF F neutrophils, absolute count 3.13 x10'3 /uL 1.5-8. 0 Not Available [facility] (Lab) [address] [place], [address], 06/03/2024 13:00:27 06/03/20 24 06/03/2024 CBC/C OMPLE TE BLD COUNT W/DIF F lymphocytes, absolute count 1.63 x10'3 /uL 1.07-3 .43 Not Available [facility] (Lab) [address] [place], [address], 06/03/2024 13:00:27 06/03/20 24 06/03/2024 CBC/C OMPLE TE BLD COUNT W/DIF F monocytes, absolute count 0.32 x10'3 /uL 0.29-0 .99 Not Available [facility] (Lab) [address] [place], [address], 06/03/2024 13:00:27 06/03/20 24 06/03/2024 CBC/C OMPLE TE BLD COUNT W/DIF F eosinophils, absolute count 0.19 x10'3 /uL 0.02-0 .53 Not Available [facility] (Lab) [address] [place], [address], 06/03/2024 13:00:27 06/03/20 24 06/03/2024 CBC/C OMPLE TE BLD COUNT W/DIF F basophils, absolute count 0.06 x10'3 /uL 0.01-0 .08 Not Available [facility] (Lab) [address] [place], [address], 06/03/2024 13:00:27 06/03/20 24 06/03/2024 CBC/C OMPLE TE BLD COUNT W/DIF F immature granulocytes ,absolute 0.02 x10'3 /uL 0.00-0 .05 Not Available [facility] (Lab) [address] [place], [address], 06/03/2024 13:00:27 06/03/20 24 06/03/2024 CBC/C OMPLE TE BLD COUNT W/DIF F nucleated red blood cells 0.0 % -0 Not Available [facility] (Lab) [address] [place], [address], 06/03/2024 13:00:27 06/03/20 24 06/03/2024 CBC/C OMPLE TE BLD COUNT W/DIF F NRBC# 0.00 x10'3 /uL Not Available [facility] (Lab) [address] [place], [address], 06/03/2024 13:00:27 06/03/20 24 06/03/2024 COMPR EHENS BRIANDA METAB OLIC PANEL sodium 139 mmol/ L 137-14 5 Not Available [facility] (Lab) [address] [place], [address], 06/03/2024 13:10:06 06/03/20 24 06/03/2024 COMPR EHENS BRIANDA METAB OLIC PANEL potassium 4.6 mmol/ L 3.5-5. 1 Not Available [facility] (Lab) [address] [place], [address], 06/03/2024 13:10:06 06/03/20 24 06/03/2024 COMPR EHENS BRIANDA METAB OLIC PANEL chloride 108 mmol/ L 98-107 high Not Available [facility] (Lab) [address] [place], [address], 06/03/2024 13:10:06 06/03/20 24 06/03/2024 COMPR EHENS BRIANDA METAB OLIC PANEL carbon dioxide 29 mmol/ L 22-30 Not Available [facility] (Lab) [address] [place], [address], 06/03/2024 13:10:06 06/03/20 24 06/03/2024 COMPR EHENS BRIANDA METAB OLIC PANEL anion gap 6.6 mmol/ L 14-22 low Not Available [facility] (Lab) [address] [place], [address], 06/03/2024 13:10:06 06/03/20 24 06/03/2024 COMPR EHENS BRIANDA METAB OLIC PANEL glucose 91 mg/dL 70-99 Not Available [facility] (Lab) [address] [place], [address], 06/03/2024 13:10:06 06/03/20 24 06/03/2024 COMPR EHENS BRIANDA METAB OLIC PANEL BUN 16 mg/dL 8-19 Not Available [facility] (Lab) [address] [place], [address], 06/03/2024 13:10:06 06/03/20 24 06/03/2024 COMPR EHENS BRIANDA METAB OLIC PANEL creatinine 0.77 mg/dL 0.66-1 .25 Not Available [facility] (Lab) [address] [place], [address], 06/03/2024 13:10:06 06/03/20 24 06/03/2024 COMPR EHENS BRIANDA METAB OLIC PANEL GFR >60 Refer ence Range : [place] ge GFR Healt hy Adult : >60 mL/mi n/1.7 3 m2 Chron ic Kidne y Disea se: 15-60 mL/mi n/1.7 3 m2 Kidne y Failu re: <15/m L/min /1.73 m2 www.n iddk. nih.g ov The MDRD study equat ion has not been valid ated in child wanda <18 years of age; pregn ant women ; the elder ly >85 years of age; or in some racia l or ethni c subgr oups, such as Hispa nics. Outsi de the valid ated martin eters , estim ated GFR is less accur ate, requi ring clini kate judgm ent on a case- by-ca se basis . Clini kate inter preta tion for other races and ages must be made by the clini todd. The MDRD study equat ion has not been valid ated for the evalu ation of serum creat inine relat ed to nutri alber l statu s or medic ation usage . For perso ns <18 years of age, a pedia tric GFR jostinu latshana is avail able on the [facility] websi te: [email or web address] :[email or web address] rg/pr ofess ional s/kdo qi/gf r_cal culat or Not Available [facility] (Lab) [address] [place], [address], 06/03/2024 13:10:06 06/03/20 24 06/03/2024 COMPR EHENS BRIANDA METAB OLIC PANEL alkaline phosphatase 76 U/L 38-126 Not Available [facility] (Lab) [address] [place], [address], 06/03/2024 13:10:06 06/03/20 24 06/03/2024 COMPR EHENS BRIANDA METAB OLIC PANEL alanine aminotransfe rase 20 U/L 0-35 Not Available [facility] (Lab) [address] [place], [address], 06/03/2024 13:10:06 06/03/20 24 06/03/2024 COMPR EHENS BRIANDA METAB OLIC PANEL aspartate aminotransfe rase 29 U/L 15-37 Not Available [facility] (Lab) [address] [place], [address], 06/03/2024 13:10:06 06/03/20 24 06/03/2024 COMPR EHENS BRIANDA METAB OLIC PANEL bilirubin, total 0.60 mg/dL 0.20-1 .30 Not Available [facility] (Lab) [address] [place], [address], 06/03/2024 13:10:06 06/03/20 24 06/03/2024 COMPR EHENS BRIANDA METAB OLIC PANEL calcium 9.8 mg/dL 8.4-10 .2 Not Available [facility] (Lab) [address] [place], [address], 06/03/2024 13:10:06 06/03/20 24 06/03/2024 COMPR EHENS BRIANDA METAB OLIC PANEL total protein 7.4 g/dL 6.3-8. 2 Not Available [facility] (Lab) [address] [place], [address], 06/03/2024 13:10:06 06/03/20 24 06/03/2024 COMPR EHENS BRIANDA METAB OLIC PANEL albumin 4.4 g/dL 3.4-5. 0 Not Available [facility] (Lab) [address] [place], [address], 06/03/2024 13:10:06 06/03/20 24 06/03/2024 COMPR EHENS BRIANDA METAB OLIC PANEL globulin 3.0 g/dL 2.6-4. 2 Not Available [facility] (Lab) [address] [place], [address], 06/03/2024 13:10:06 06/03/20 24 06/03/2024 COMPR EHENS BRIANDA METAB OLIC PANEL A/G ratio 1.5 ratio 1.0-2. 0 Not Available [facility] (Lab) [address] [place], [address], 06/03/2024 13:10:06 06/03/20 24 06/03/2024 LIPID PANEL cholesterol 211 mg/dL 140-19 9 high NIH OSMANY NSUS RECOM MENDA TION FOR CORINE STERO L: ADULT CHILD LOW RISK: <200 <170 BORDE RLINE : <200- 239 ----- HIGH RISK: >240 >[address] [facility] (Lab) [address] [place], [address], 06/03/2024 13:10:10 06/03/20 24 06/03/2024 LIPID PANEL triglyceride s 123 mg/dL 0-150 NIH OSMANY NSUS REPOR T RECOM MENDA TION FOR TRIGL YCERI FROYLAN: ADULT CHILD LOW RISK: <150 ----- BODER LINE: 150-1 99 ----- HIGH RISK: >200 ----- Not Available [facility] (Lab) [address] [place], [address], 06/03/2024 13:10:10 06/03/20 24 06/03/2024 LIPID PANEL HDL cholesterol 62 mg/dL 40- Not Available [facility] (Lab) [address] [place], [address], 06/03/2024 13:10:10 06/03/20 24 06/03/2024 LIPID PANEL LDL cholesterol, calculated 124 mg/dL 0-130 NIH OSMANY NSUS REPOR T RECOM MENDA TIONS FOR LDL: ADULT CHILD LOW RISK <130 <110 (OPTI MAL LDL) <100 ----- MARION RLINE : 130-1 59 ----- HIGH RISK: >160 >130 A TRIGL YCERI DE RESUL T >400 INVAL IDATE S THE CALCU LATIO N FOR LDL FRACT IONAT ION - THE LDL RESUL T WILL NOT BE REPOR DAVONTE. Not Available [facility] (Lab) [address] [place], [address], 06/03/2024 13:10:10 06/03/20 24 06/03/2024 T4 FREE free T4 1.41 NG/dL 0.78-2 .19 Not Available [facility] (Lab) [address] [place], [address], 06/03/2024 13:27:04 06/03/20 24 06/03/2024 VITAM IN D 25-HY DROXY vd25oh 72.1 NG/mL 30-100 Vitam in D Statu s: Defic ient: <20 ng/mL Insuf ficie nt: 20-29 ng/mL Suffi cient : 30-10 0 ng/mL Not Available [facility] (Lab) [address] [place], [address], 06/03/2024 13:27:29 06/03/20 24 06/03/2024 TSH thyroid-stim ulating hormone 1.390 uIU/m L 0.465- 4.680 Not Available [facility] (Lab) [address] [place], [address], 06/03/2024 13:39:06 07/08/20 22 07/04/2022 MAMMO , scree cody, digit al, bilat eral No observ ation record ed. [id number], [place], [address], 12/31/2022 14:52:55 07/08/20 22 07/04/2022 DEXA No observ ation record ed. [id number], [place], [address], 12/31/2022 14:52:55 06/29/20 23 XR, shoul isatu, 2 or more view [facility] [address] [facility] [place] [address] Patien t Name: JACQUIE SUN Access ion #: [id number] Sex: F : 1969 6 Dictat ed By: Flaco Price Attend ing Physic sharon: HEIDI JUAN CE Orderi Physic sharon: HEIDI JUAN CE Exam Date: 2022 12:08 PM Exam Name: XR SHOULD ER LT 2V+ Admitt ing Diagno sis(es ): Exam: XR SHOULD ER LT 2V+ Clinic al Indica tion should er pain. Compar laura: None. FINDIN GS: The 3 views of the should er show normal alignm ent at the glenoh umeral joint. There are no fractu res or disloc ations . The acromi oclavi cular joint and coraco clavic ular spaces are intact . The acromi on and coraco id proces ses appear unrema rkable . The subacr omial space is unrema rkable . The visual ized scapul a and clavic le are unrema rkable . There are no radiop aque foreig n bodies or soft tissue swelli ng. If there is furthe r concer n, follow up radiog raphs or MRI of the should er may be perfor med for comple te assess ment. IMPRES VELIA: 1. No fractu res or disloc ations of the left should er. SL: [id number] Electr onical ly Signed by: Flaco Price at 2022 13:20: 27 PM Page [address] (Imaging) [address] [place], [address], 06/29/2023 14:28:42 07/20/20 23 07/17/2023 MAMMO , scree cody, digit al, bilat eral No observ ation record ed. [address] [facility], [place], [address], 07/20/2023 15:56:32 08/03/20 24 07/29/2024 MAMMO , scree cody, digit al, bilat eral No observ ation record ed. [address] [facility], [place], [address], 08/03/2024 07:16:56 Result Notes None recorded. 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 3 14:48:33 Allergic rhinitis 97153912 Active [address] [facility] 3 14:48:33 Vitamin D deficiency 71018447 Active 2022 Lauren Juan MD [address] [address], [place], [address] , [facility] [employer] [facility] 3 10:44:51 Pain of left shoulder joint 2286163787219 9109 Active 2022 Zina Barney CMA null, [place] - [facility] 3 15:17:42 Acute sinusitis 27224340 Active 2023 Lauren Juan MD [address] [address], [place], [address] , [facility] [employer] [facility] [employer] [facility] 4 15:53:52 Problem Notes None recorded. Procedures Surgical History None recorded. Imaging Results Imaging Date Name Status LastModified by Organiz ation Details LastModified Time 07/04/2022 MAMMO, screening, digital, bilateral completed [id number] [address], [address], 12/31/2022 14:52:55 07/04/2022 DEXA completed [id number], [place], [address], 12/31/2022 14:52:55 06/29/2023 XR, shoulder, 2 or more view completed [email or web address] [facility] (Imaging) [address] [place], [address], 06/29/2023 14:28:42 07/17/2023 MAMMO, screening, digital, bilateral completed [address], [place], [address], 07/20/2023 15:56:32 07/29/2024 MAMMO, screening, digital, bilateral completed [email or web address] [address] [address] [facility] [address], [place], [address], 08/03/2024 07:16:56 Procedure Notes None recorded. Medical Equipment None Reported. Medications Name Sig Start Date Stop Date Status Note LastModified by Organization Details LastModified Time losartan 50 mg tablet Take 1 tablet every day by oral route. 04/14 completed Not Available Not Available Not Available amoxicillin 500 mg capsule Take 1 capsule 3 times a day by oral route for 10 days. 03/01 completed Not Available Not Available Not Available azithromyci n 250 mg tablet TAKE 2 TABLETS BY MOUTH EVERY DAY FOR 1 DAY THEN TAKE 1 TABLET BY MOUTH DAILY active Not Available Not Available No t Available benzonatate 200 mg capsule Take 1 capsule 3 times a day by oral route. 03/01 completed Not Available Not Available Not Available Keflex 500 mg capsule Take 1 capsule 4 times a day by oral route. 11/24 completed Not Available Not Available Not Available Naprosyn 375 mg tablet Take 1 tablet twice a day by oral route. 05/19 completed Not Available Not Available Not Available Tamiflu 75 mg capsule Take 1 capsule twice a day by oral route for 5 days. 11/24 completed Not Available Not Available Not Available tobramycin 0.3 % eye drops INSTILL 1 DROP INTO AFFECTED EYE(S) BY OPHTHALMI C ROUTE EVERY 4 HOURS 11/30 completed Not Available Not Available Not Available methylpredn isolone 4 mg tablets in a dose pack Take by oral route as per package insert 11/24 completed Not Available Not Available Not Available Vitals Date Recorded Body mass index (BMI) Body height Heart rate Respiratory rate Body temperature Body weight Systolic blood pressure Diastolic blood pressure Provider Name and Address Organization Details Last Updated DateTime 1 21.4 kg/m2 157.48 cm 80 /min 12 /min 96.8 [degF] 18408.3 1 g 120 mm[Hg] 72 mm[Hg] Not Available [facility] 3 14:45:44 Date Recorded Body mass index (BMI) Body height Oxygen saturation Oxygen saturation in Arterial blood by Pulse oximetry Pain severity - 0-10 verbal numeric rating [Score] - Reported Heart rate Body temperature Body weight Systolic blood pressure Diastolic blood pressure Provider Name and Address Organization Details Last Updated DateTime 2 21.6 kg/m2 157.48 cm 99 % 99 % 0 62 /min 97.1 [degF] 72715.9 g 112 mm[Hg] 70 mm[Hg] Not Available [facility] 3 14:45:44 Date Recorded Body height Body mass index (BMI) Body weight Heart rate Body temperature Oxygen saturation Oxygen saturation in Arterial blood by Pulse oximetry Provider Name and Address Organization Details Last Updated DateTime 3 157.48 cm 21.4 kg/m2 84032.3 1 g 82 /min 97 [degF] 99 % 99 % Lawanda Brooks [employer] 3 10:33:51 Date Recorded Body height Body mass index (BMI) Body weight Pain severity - 0-10 verbal numeric rating [Score] - Reported Provider Name and Address Organization Details Last Updated DateTime 07/10/2023 157.48 cm 21.4 kg/m2 39051.31 g 8 LALITA Saldana [employer] 07/10/2023 10:13:06 Date Recorded Body height Body mass index (BMI) Body weight Heart rate Body temperature Oxygen saturation Oxygen saturation in Arterial blood by Pulse oximetry Systolic blood pressure Diastolic blood pressure Provider Name and Address Organization Details Last Updated DateTime 4 157.48 cm 20.3 kg/m2 80396.7 5 g 77 /min 97.5 [degF] 98 % 98 % 114 mm[Hg] 80 mm[Hg] LALITA Yi [employer] 4 15:54:38 Social History Question Answer Notes LastModified by Organizat ion Details LastModified Time Tobacco Smoking Status Never Smoker LALITA Saldana [facility] [employer] 07/10/2023 10:13:31 What Is Your Level Of Alcohol Consumption? None [email or web address] Information not available 07/10/2023 What Was The Date Of Your Most Recent Tobacco Screening? 07/10/2023 [email or web address] Information not available 07/10/2023 Sex: Unknown Functional Status None recorded. Mental Status None recorded. Family History Nothing Reported Notes:Mother 65 with Hx of L umbar disc Father 68 A+W Twin sister A+W Medical History Condition Response BLINDNESS N NERVE DISEASE N RHEUMATIC FEVER N BLADDER PROBLEMS N KIDNEY STONES N MRSA N OTHER # 1 N POLIO N LUNG DISEASE/DISORDER N HISTORY OF DRUG ABUSE N RADIATION / CHEMOTHERAPY N COPD N Other # 2 N BLOOD DISEASES N EAR OR HEARING PROBLEMS N MUMPS N SHINGLES N DEPRESSION (INCLUDING POST ) N BOWEL PROBLEMS N FAILED BACK SYNDROME N STROKE/TIA N ULCERS N BENIGN PROSTATIC HYPERPLASIA N MEASLES N HYPOTENSION N MYOCARDIAL INFARCTION N OBESITY N GERD/NAUSEA N ANEURYSM N URINARY/BLADDER/KIDNEY PROBLEMS N CORONARY ARTERY DISEASE (CAD) N Do you have Advance directive? N ADDICTION CONCERNS N ENDOMETRIOSIS N Impotence N USE OF BLOOD THINNERS N SKIN PROBLEMS N GASTROINTESTINAL DISORDER N PERIPHERAL VASCULAR DISEASE N MUSCLE,JOINT OR BONE PROBLEMS N GASTROINTESTINAL BLEEDING N BLOOD CLOTS N ASTHMA N Abdominal Pain N CATARACTS N ARTERIAL INSUFFICIENCY N ERECTILE DYSFUNCTION N VARICOSITIES N GI PROBLEMS N Low Testosterone N INFERTILITY N AIDS/HIV N CHEMOTHERAPY / RADIATION N LIVER DISEASE N MALE HYPOGONADISM N HYPERTENSION N Deficiency N TOURETTE'S N ANXIETY DISORDER N BLOOD TRANSFUSION N ANEMIA/BLOOD DISORDER N CHRONIC EAR INFECTIONS N TUBERCULOSIS N GLAUCOMA N FOOT PROBLEM N DIVERTICULITIS N CHICKENPOX N SLEEP APNEA N BACK INJECTIONS N ALLERGIES/HAYFEVER N INFECTIOUS DISEASE N HEART ARRHYTHMIA N PROSTATE N ESRD N INSOMNIA N HIGH CHOLESTEROL / HYPERLIPIDEMIA N HYPERTHYROIDISM N EYE PROBLEMS N PVD N EDEMA N CHRONIC PAIN SYNDROME N HYPOTHYROIDISM N CONSTIPATION N CAROTID BLOCKAGE N BACK / NECK PROBLEMS N HAVE YOU BEEN HOSPITALIZED OR SEEN IN [facility] IN THE PAST YEAR ? N ATHEROSCLEROSIS N BREAST PROBLEMS N DIALYSIS N POLYCYSTIC OVARIES N ECZEMA N OSTEOPOROSIS N ARTHRITIS N NO SIGNIFICANT PAST MEDICAL HISTORY N APPENDICITIS N DIABETES, TYPE N BAD TEETH N VON WILLIBRAND'S DISEASE N ENT N HEARTBURN / REFLUX N GI N AUTISM SPECTRUM DISORDER (ASD) N POST LAMINECTOMY SYNDROME N HEPATITIS / LIVER DISEASE N GOUT N SLEEP DISORDER N ALZHEIMER'S DISEASE N Brain Problems N HERPES N DEMENTIA N HEADACHES/MIGRAINES N SEIZURES/EPILEPSY N VASCULAR DISEASE N PACEMAKER N DIZZINESS N HEART DISEASE/HEART PROBLEMS N KIDNEY DISEASE N MULTIPLE SCLEROSIS N NEUROPSYCHOLOGICAL N CARDIAC ARRHYTHMIA N CANCER: SPECIFY N ATRIAL FIBRILLATION N Gall Stones N PULMONARY EMBOLISM N AUTOIMMUNE DISEASE N Gynecological HistoryNo gynecological history recorded. Obstetrics History GPAL:G 0 P 0 0 0 0 Past Encounters Encounter ID Performer Location Encounter Start Date Encounter Closed Date Diagnosis/Indication Diagnosis SNOMED-CT Code Diagnosis ICD10 Code Diagnosis Note [id number] [facility] [place] [address] [place] [address] 03/01/2021 00:00:00 03/01/2021 10:41:38 [id number] [facility] [place] [address] [place] [address] [place] [address] 03/21/2022 00:00:00 03/21/2022 11:10:17 [id number] Lauren Juan MD [facility] [place] [address] [place] [address] [place] [address] 03/27/2023 10:32:21 03/27/2023 10:49:38 Adult health examination 919175074 Z00.00 Depression screening 171 776360 Z13.31 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 [place] [address] 07/10/2023 09:59:10 07/10/2023 10:31:25 Pain of left shoulder joint 5508131498 2499163 M25.246 [id number] Lauren Juan MD [facility] [place] [address] [place] [address] [place] [address] 04/14/2024 15:42:41 04/14/2024 16:12:18 Adult health examination 517691606 Z00.00 Carcinoid tumor of appendix 380802520 D37.3 Vitamin D deficiency 347 10806 E55.9 Health Concerns Section Related Observation LastModified by Organization Detai ls LastModified Time None Recorded Concern Status LastModified by Organization Details LastModified Time None Recorded Advance Directives Directive None Recorded Payers Encounter Date Sequence Insurance Name Policy Number Policy Soriano Covered Member ID Soriano Member ID Guarantor Name 03/27/2023 1 [facility] [place] - DOS PRIOR TO 2024 (O) [id number] Brandon Sun [id number] RADHA 07/10/2023 1 [facility] - DOS PRIOR TO 2024 (PPO) [id number] Brandon Sun [id number] RADHA 04/14/2024 1 [facility] [place] - DOS PRIOR TO 2024 (PPO) [id number] Brandon Sun [id number] RADHA Sun Notes Date Note Type Note Provider Name and Address Organization Details Recorded Time 03/27/2023 text/html Patient Name: Rafaela SunDate Of Service: Thursday ( 03.27.2023 ): 1970 Age: 52 Vital Signs:Blood Pressure: Sitting Rt. Arm 118/78Pulse: Sitting 82 /min and RegularRespirations: 12Height 62 in or 1.6 mWeight 117 lb or 53.1 kgBMI 21.4Temperature: 97 F or 36.1 CPulse Oximetry: 99 % at rest on no oxygen Chief Complaint: Addressed in HPI Problems or conditions discussed in the HPI were the only ones reviewed during the encounter.Only social and family history addressed in the HPI were reviewed during this encounter. Attendant(s): None Constitutional and Systemic Symptoms: none Medication Reconciliation: from medication list. History of Present Illness In for a well patient check up. Last well patient evaluation was approximately one year. No interval complaints of any major medical problems. No hx of any chest pain, shortness of breath, nausea, vomiting, diarrhea or constitutional symptoms. Also being followed for other chronically monitored problems. No interval complaints any new problems since last examination.#1. Carcinoid of the appendix clinically stable. No signs of any type of flushing syndromes or other signs or suggestion of carcinoid syndrome. Clinically doing well. Is followed on a regular basis by Gastroenterology on a periodic screening program.Has Had A Mammogram dueHas Had A Pap Smear dueImmunizations Up To Date or refuses to takeNo Significant Change In Family HxColonoscopy or Cologuard: not dueFall Risk normalDepression Score: 0Hearing normalVision normalReviewed Smoking and Drug HistoryReviewed Immunization HistoryInstructed on importance of weight on diabetes, heart and other diseases aggravated by obesity.Surgical HistoryAppendectomy, D&C, Left Breast Bx-fibrocysticPreventat brianda Testing Confirmed by Our Hmzkldu63/12/2021 DEXA SCAN05/23/2022 COLONOSCOPY ( 10 YEARS ) ALBUMIN 4.3 G/DLSocial HistoryDoes not smoke or drinkFamily HistoryMother 74 with Hx of Lumbar discFather 78 A+WTwin sister A+W Lauren Juan MD [address] [facility], [facility] [address], [place], [address], [facility] [employer] 03/27/2023 10:45:31 04/14/2024 text/html Patient Name: Rafaela House FishDate Of Service: April ( 04.14.2024 ): 1970 Age: 53 There has been approximately a 6 lb weight loss since 03/27/2023. This represents approximately a 5.1% change in weight. Weight change attributable to lifestyle changes. Vital Signs:Blood Pressure: Sitting Rt. Arm 114/80Pulse: Sitting 71 /min and RegularRespiratory Rate: 12Height 62 in or 1.6 mWeight 111 lb or 50.3 kgBMI 20.3Temperature: 97.5 F or 36.4 CPulse Oximetry: 98 % at rest on no oxygen Chief Complaint: Addressed in HPI Problems or conditions discussed in the HPI were the only ones reviewed during the encounter.Only social and family history addressed in the HPI were reviewed during this encounter. Attendant(s): NoneConstitutional and Systemic Symptoms:none Medication Reconciliation: by patient. History of Present Illness In for a well patient check up. Last well patient evaluation was approximately one year. No interval complaints of any major medical problems. No hx of any chest pain, shortness of breath, nausea, vomiting, diarrhea or constitutional symptoms. Also being followed for other chronically monitored problems.Has Had A Mammogram already doneHas Had A Pap Smear already doneImmunizations Up To Date or refuses to takeNo Significant Change In Family HxColonoscopy or Cologuard: not dueFall Risk normalDepression Score: 0Hearing normalVision normalReviewed Smoking and Drug HistoryReviewed Immunization HistoryInstructed on importance of weight on diabetes, heart and other diseases aggravated by obesity. #1. History of carcinoid of the appendix clinically stable. Not due for any type of diagnostic evaluation at this time.: FAST Stage: 1 No functional decline GCOG Score: Date Clock Numbers Clock Hands Information First Name Last Name Address Number [facility] Score: 9 Basic ADL Score: Bathing and Showering Dressing Feeding Functional Mobility Personal Hygiene Toilet Hygiene Score: 6 Instrumental ADL Score: House Work Taking Medications Shopping Telephone Using Technology Transportation Score: 6 Surgical Khinwip0573-73 Prfchrvdgave8948-85 D&L0976-14 Left Breast Bx-fibrocystic Preventative Rwdqfws6707/17/2023 MAMMOGRAM / ALBUMIN 4.4 G/DL N007/04/2022 DEXA SCAN05/23/2022 COLONOSCOPY ( 10 YEARS ) 05/23/2032 Social HistoryDoes not smoke or drink Family HistoryMother 74 with Hx of Lumbar discFather 78 A+WTwin sister A+W Lauren Juan MD [address] [facility], [facility] [address], [place], [address], [place] [employer] [facility] 04/14/2024 16:10:43 OBGyn Episode No OBEpisode recorded.
--- OUTSIDE RECORDS SUMMARY | 2025-02-10 08:57 | XMS_ITS | Clinical Summary ---
Author Organization [facility] [address] [facility] Address [address] [facility] [address] [place] [address] Care Team Providers Care Environmental Director Name Role Phone Too Cecile DO Unavailable [phone] Deepa Taylor HEALTHCARE CONSULTING MANAGER Unavailable [phone] Radha Cleveland HEALTHCARE CONSULTING MANAGER Unavailable [phone] Jermaine Juan MD Primary Care Provider Allergies No known active allergies Medications yxcovwyr-hrsl-LT -calcium-mins 18 mg iron-400 mcg-500 mg Ca tablet Take by mouth Active omega 5-nhh-zkv-fish oil 60-90-500 mg capsule,delayed release(DR/EC) Take by mouth Active cholecalciferol (Vitamin D3) 2000 unit tablet Act freddie magnesium gluconate 200 mg tabletIndication s:hypomagnesemia 1 tablet (200 mg total) Active ZINC ACETATE ORAL Take by mouth Active biotin (Hair, Skin and Nails, biotin,) 10,000 mcg tablet,chewable Take by mouth Active Active Problems Problem Noted Date Diagnosed Date Prepatellar bursitis 10/06/2023 Carcinoid syndrome 10/06/2023 Pain in joint of left shoulder 06/26/2023 Vitamin D deficiency 03/27/2023 Senile osteoporosis 03/21/2022 Lateral epicondylitis of right elbow 03/21/2022 Lateral epicondylitis of left elbow 03/21/2022 Allergic rhinitis 03/01/2021 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 Immunizations Immunization Administration Dates Next Due Tdap 12/21/2010 Surgical History Surgery Date Site/Laterality Comments SECTION BREAST BIOPSY Left GYNECOLOGIC CRYOSURGERY Family History Medical History Relation Name Comments No Known Problems Father Colon cancer Maternal Grandmother No Known Problems Mother Relation Name Status Comments Father Maternal Grandmother Mother Social History Tobacco Use Types Packs/Day Years Used Date Smoking Tobacco: Never Smokeless Tobacco: Never Tobacco Cessation:Counseling Given: Yes AUDIT-C Answer Date Recorded Q1: How often do you have a drink containing alcohol? Never 07/29/2024 Q2: How many drinks containi ng alcohol do you have on a typical day when you are drinking? Patient does not drink Q3: How often do you have si x or more drinks on one occasion? 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 Gender Identity Not on file Sexual Orientation Not on file Obstetrics History Para Term AB IAB SAB Ectopic Multiple Livin g Live Births 2 2 2 2 2 Date Outcome GA Total Labor Labor/2nd/3rd Weight Sex Type Anes PTL Gladis A1 A5 Name Clin 2008 Term 3.232 kg (7 lb 2 oz) M Vag-S pont Living 2010 Term 3.487 kg (7 lb 11 oz) F C-Sec tion Living Last Filed Vital Signs Vital Sign Reading Time Taken Comments Blood Pressure 118/54 07/29/2024 9:17 AM CDT Pulse - - Temperature - - Respiratory Rate - - Oxygen Saturation - - Inhaled Oxygen Concentration - - Weight 50.8 kg (112 lb) 07/29/2024 9:17 AM CDT Height 156.2 cm (5' 1.5 ) 07/29/2024 9:17 AM CDT Body Mass Index 20.82 07/29/2024 9:17 AM CDT Plan of Treatment Health Maintenance Due Date Last Done Comments Depression Screening 1970 DTaP/Tdap/Td Vaccine (2 - Td or Tdap) 12/21/2020 12/21/2010 Zoster Vaccine (1 of 2) 2021 Influenza Vaccine (#1) 2024 Cervical Cancer Screening 04/03/2025 04/03/2020 Breast Cancer Screening-Mammogram 07/29/2025 07/29/2024, 07/17/2023 Regular Well Visit/Exam 18-64 07/29/2025 07/29/2024, 07/17/2023 Colon Cancer Screening-Colonoscopy 05/02/2032 05/02/2022 Hepatitis B Screening Discontinued Hepatitis C Screening Discontinued Pneumococcal vaccine <65 Aged Out No longer eligible based on patient's age to complete this topic Insurance [employer] Care Teams Environmental Director Relationship Specialty Start Date End Date Jermaine Juan MD [address] [place] [address] [place] [address] PCP - General Internal Medicine 07/29/24 Cecile Gage DO [address] [place] [id number] Loan Interviewer Mortgage Obstetrics and Gynecology 07/16/23 Deepa Taylor, HEALTHCARE CONSULTING MANAGER [address] [place] [address] Nurse Practitioner Obstetrics and Gynecology 10/06/23 Radha Cleveland NP [address] [place] [address] Nurse Practitioner Obstetrics and Gynecology 07/28/24
--- OUTSIDE RECORDS SUMMARY | 2025-02-10 08:57 | XMS_ITS | Referral Summary ---
Author Organization [facility] [address] [facility] Address [address] [facility] [address] [place] [address] Care Team Providers Care Seed Pelleter Name Role Phone TooDakotahet DO Unavailable [phone] Deepa Taylor MOTH PROOFER Unavailable [phone] Radha Cleveland MOTH PROOFER Unavailable [phone] Jermaine Juan MD Primary Care Provider Allergies No known active allergies Medications fpasdvzu-xkjf-RE -calcium-mins 18 mg iron-400 mcg-500 mg Ca tablet Take by mouth Active omega 7-fxe-yor-fish oil 60-90-500 mg capsule,delayed release(DR/EC) Take by [...] Immunization Administration Dates Next Due Tdap 12/21/2010 Social History Tobacco Use Types Packs/Day Years [...] on file 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 HMO/PPO Address: [facility] [address] [place] [address] [place] [address] Care Teams Seed Pelleter Relationship Specialty Start Date End Date Jermaine Juan MD [facility] [place], [place] [id number] PCP - General Internal Medicine 07/29/24 Cecile Gage DO [address] [place] [place] [address] Wreath Machine Operator Obstetrics and Gynecology 07/16/23 Deepa Taylor NP [address] [place] [address] Nurse Practitioner Obstetrics and Gynecology 10/06/23 Radha Cleveland NP [address] [place] [address] Nurse Practitioner Obstetrics and Gynecology 07/28/24
== END 2025-02-10 08:44 | disposition home or self-care (01) ==
PROVIDERS: PCP Internal Medicine; Visit Provider Otolaryngology
DX: H90.3 Sensorineural hearing loss, bilateral (principal); J31.0 Chronic rhinitis; H61.23 Impacted cerumen, bilateral
CPT/HCPCS: 92557; 92567